=== PATIENT | female | born 1970 | race Caucasian/White ===

== ENCOUNTER 2019-09-07 07:14 | Outpatient (CLI) | payer BC, SELFPAY ==
--- NOTE | ~2019-09-07 | MM_ITS ---
EXAMINATION: MM screening andrew BI w renée HISTORY: Screening mammogram TECHNIQUE: Craniocaudal and mediolateral oblique 3-D tomosynthesis images were obtained and synthetic 2-D images were generated. CAD analysis was submitted and interpreted. COMPARISON: Comparison to multiple prior studies sequentially, with oldest reviewed study dated 08/17. BREAST PARENCHYMAL COMPOSITION: There are scattered areas of fibroglandular density. FINDINGS: There is been possible subtle enlargement of irregular shaped mass in the lower outer quadr ant of the right breast anteriorly with associated calcifications. The left breast is stable without evidence for malignancy. IMPRESSION: 1. Possible subtle enlargement of irregular mass lower outer quadrant of the right breast anteriorly. 2. Additional mammographic views and possible breast ultrasound are recommended. BI-RADS Category 0: Incomplete: Needs additional imaging evaluation. Reviewed, dictated and finalized at location A. IMPRESSION: 1. Possible subtle enlargement of irregular mass lower outer quadrant of the ri ght breast anteriorly. 2. Additional mammographic views and possible breast ultrasound are recommended . BI-RADS Category 0: Incomplete: Needs additional imaging evaluation.
== END 2019-09-07 07:15 | disposition home or self-care (01) ==
LOC: ANHIMG 07:19
PROVIDERS: PCP Nurse Practitioner Adult Health; Visit Provider Obstetrics & Gynecology
DX: Z12.31 Encounter for screening mammogram for malignant neoplasm of breast (principal); R92.8 Other abnormal and inconclusive findings on diagnostic imaging of breast
CPT/HCPCS: 77063; 77067

== ENCOUNTER → 2019-09-10 08:59 | Outpatient (CLI) | payer BC, SELFPAY ==
--- NOTE | ~2019-09-10 | MMUS_ITS ---
EXAMINATION: MM diagnostic mammo unilat RT, US breast RT limited HISTORY: Follow-up right breast mass TECHNIQUE: Additional 3-D tomosynthesis images of the right breast were performed and synthetic 2-D i mages were generated. CAD analysis was submitted and interpreted. High resolution right breast ultras ound was performed. COMPARISON: 09/07/2019 BREAST PARENCHYMAL COMPOSITION: Breast composed of scattered areas of fibroglandular density FINDINGS: MAMMOGRAPHIC FINDINGS: There is a focal mass in the lower central aspect of the right breast anteriorly containing nonspecif ic calcifications. This mass measures approximately 8 mm maximum dimension. There is a smaller 5 mm m ass in the subareolar location of the right breast. ULTRASOUND: Right breast ultrasound: At 9:00, 2 cm from the nipple, there is an oval circumscribed heterogeneous mass measuring 7 x 3 x 7 mm with internal echogenicity and calcifications. There is internal vascularity. At 9:00, 3 cm from t he nipple, there is a 6 mm cyst. IMPRESSION: 1. Complex 7 mm right breast mass at 9:00, 2 cm from the nipple with associated calcifications. Stere otactic right breast biopsy recommended. BI-RADS CATEGORY 4-SUSPICIOUS ABNORMALITY RECOMMENDATION: Stereotactic right breast biopsy recommended. Reviewed, dictated and finalized at location A. IMPRESSION: 1. Complex 7 mm right breast mass at 9:00, 2 cm from the nipple with associated calcifications. Stereotactic right breast biopsy recommended. BI-RADS CATEGORY 4-SUSPICIOUS ABNORMALITY RECOMMENDATION: Stereotactic right breast biopsy recommended.
== END ==
PROVIDERS: Visit Provider Obstetrics & Gynecology
DX: R92.8 Other abnormal and inconclusive findings on diagnostic imaging of breast (principal)
CPT/HCPCS: 76642; 77065

== ENCOUNTER → 2020-05-21 01:45 | Outpatient (CLI) | payer BC, SELFPAY ==
[2020-05-21 19:34] LABS: SARS-CoV-2 RNA PCR Negative
== END ==
PROVIDERS: Visit Provider Internal Medicine Gastroenterology
DX: Z01.812 Encounter for preprocedural laboratory examination (principal); Z20.822 Contact with and (suspected) exposure to COVID-19
CPT/HCPCS: C9803; U0003; U0005

== ENCOUNTER 2020-05-24 01:09 | Day surgery (SDC) | payer BC, SELFPAY ==
[2020-05-10 14:26] VITALS: BMI 36.3
[2020-05-24] MEDS: LACTATED RINGERS 1,000 ML 150 ML IV CONT (07:00)
[2020-05-24 07:06] VITALS: BP 145/97; PULSE 94; RESP 20; TEMP 36.2; O2SAT 97; BMI 36.8
--- NOTE | 2020-05-24 07:42 | P.PNAN_ITS ---
Anes - Initial Pre Proc Eval Procedure: Operation Date: 05/24/20 08:00 Proposed Procedures p Screening Colonoscopy - Ronal Mcadams MD Date/Time: 05/24/20 07:42 Surgeon: Ronal Mcadams MD Pre Op Diagnosis: neoplasm Screening Patient Data Age: 50 Gender: F Height: 5 ft 4 in Weight: 97.2 kg Last Vital Signs Temp 97.2 F L 05/24/20 07:06 Pulse 94 05/24/20 07:06 Resp 20 05/24/20 07:06 BP 145/97 H 05/24/20 07:06 Pulse Ox 97 05/24/20 07:06 Allergies Allergy/AdvReac Type Severity Reaction Status Date / Time No Known Allergies Allergy Verified 05/24/20 07:03 Home Medications Medication Instructions Recorded Confirmed Type sodium,potassium,mag sulfates 17.5 See Rx Instructions PO .COMPLEX 04/18/20 Rx gram-3.13 gram-1.6 gram oral soln #354 ml lisinopril 10 mg PO DAILY 05/10/20 05/10/20 History Patient hx anesthesia problems: none Family hx anesthesia problems: none [facility] Past Medical History Medical History (Updated 05/24/20 @ 07:42 by Lenny Sauceda MD) Hypertension DANIELLA (obstructive sleep apnea) Social History Social History Smoking status: Never smoker Alcohol intake: never Substance use: never Substance use type: does not use Living arrangements: with family Spiritual care concerns: No Anes - Eval Final PreProcedure Day of Procedure 05/24/20 07:42 Patient weight: obese Heart: regular rate and rhythm Lungs: clear to auscultation Airway: Mallampati scale Last oral intake: >/= 8 hours ASA classification: III Emergent: no Anesthetic plan: proceed Anesthesia type and monitoring: general GIVS and standard monitoring Informed Consent: The patient's anesthetic plan and its attendant risks and benefits were discussed with the patient/family/POA. Questions were solicited and answers provided to the satisfaction of the patient/family/POA.
--- NOTE | 2020-05-24 08:02 | P.HP_ITS ---
History of Present Illness History of Present Illness Consent: Risks, benefits, and alternatives have been discussed and questions answered. Patient agrees to proceed with procedure. Chief complaint: neoplasm Screening Narrative: Luz Yo is a 50 year old female here for first screening colonoscopy Review of Systems Constitutional: Constitutional: Denies headache(s) and Denies weakness Eyes: Eyes: Denies blurry vision ENT: Reports Normal hearing present, Denies headache(s) and Denies neck pain Cardiovascular: Cardiovascular: Denies chest pain and Denies dyspnea Respiratory: Respiratory: Denies dyspnea Gastrointestinal: Gastrointestinal: Reports no additional gastrointestinal complaints Genitourinary: Genitourinary: Denies dysuria Musculoskeletal: Musculoskeletal: Denies neck pain Integumentary/Breasts: Skin/Breast: Denies dry skin Neurologic: Reports Normal hearing present, Denies headache(s) and Denies weakness Psychiatric: Psychiatric: Denies anxiety Endocrine: Endocrine: Denies change in body appearance Hematologic/Lymphatic: Hematologic/Lymphatic: Denies easy bleeding Allergic/Immunologic: Allergic/Immunologic: Denies urticaria [facility] [place] Past Medical History Medical History (Updated 05/24/20 @ 08:03 by Ronal Mcadams MD) Colon cancer screening Hypertension DANIELLA (obstructive sleep apnea) Social History Social History Smoking status: Never smoker Alcohol intake: never Substance use: never Substance use type: does not use Living arrangements: with family Spiritual care concerns: No Meds Home Medications and Allergies Home Medications Medication Instructions Recorded Confirmed Type sodium,potassium,mag sulfates 17.5 See Rx Instructions PO .COMPLEX 04/18/20 Rx gram-3.13 gram-1.6 gram oral soln #354 ml lisinopril 10 mg PO DAILY 05/10/20 05/10/20 History Allergies Allergy/AdvReac Type Severity Reaction Status Date / Time No Known Allergies Allergy Verified 05/24/20 07:03 Vital Signs Vital Signs - 24 hr 05/24/20 07:06 Temperature 97.2 F L Pulse Rate 94 Respiratory Rate 20 Blood Pressure 145/97 H Pulse Oximetry 97 Exam Const: General: comfortable and no acute distress HENMT: General nose exam: Normal nares present Eyes: General: appearance normal, both eyes and all related structures Neck: Neck: no JVD Resp: Auscultation: clear to auscultation bilaterally Cardio: Rate: regular rate Rhythm: regular rhythm GI: Inspection: non-distended GI Palp: Yes Soft to palpation Skin: General skin exam: normal color Neuro: General: gait normal Speech: normal speech Extrem: General: normal to inspection Psych: Mental Status: mental status grossly normal Assessment and Plan Assessment and plan (1) Colon cancer screening: Code(s): Z12.11 - Encounter for screening for malignant neoplasm of colon Status: Acute Assessment and Plan: proceed with colonoscopy
[2020-05-24 08:26] VITALS: BP 121/86; PULSE 95; RESP 22; O2SAT 94
[2020-05-24 08:36] VITALS: BP 124/86; PULSE 94; RESP 23; O2SAT 93
[2020-05-24 08:46] VITALS: BP 123/90; PULSE 91; RESP 23; O2SAT 98
== END 2020-05-24 08:56 | disposition home or self-care (01) ==
PROVIDERS: PCP Nurse Practitioner Adult Health; Visit Provider Internal Medicine Gastroenterology
PROC: 0DJD8ZZ Inspection of Lower Intestinal Tract, Via Natural or Artificial Opening Endoscopic (ICD-10-PCS; CPT 45378; principal; 2020-05-24 08:00)
DX: Z12.11 Encounter for screening for malignant neoplasm of colon (principal); D12.5 Benign neoplasm of sigmoid colon; K64.8 Other hemorrhoids; I10 Essential (primary) hypertension; G47.33 Obstructive sleep apnea (adult) (pediatric); E66.9 Obesity, unspecified; Z68.36 Body mass index [BMI] 36.0-36.9, adult
CPT/HCPCS: 45385; 88305; J2704; J7120